=== PATIENT | female | born 1995 | race African-American/Black ===

== ENCOUNTER 2017-12-06 08:39 | Outpatient (CLI) | payer OTHER ==
[2017-12-06] MEDS: LACTATED RINGER'S 1,000 ML IV (09:43)
[2017-12-06 09:58] LABS: ADD MAN DIFF? NO
[2017-12-06 10:06] LABS: WHITE BLOOD COUNT 5.9 10^3/ul (4.8-10.8)
[2017-12-06 10:06] LABS: BASOPHILS % 0.2 % (0.0-2.0); EOSINOPHILS % 0.3 % (0.0-7.0); HEMATOCRIT 27.1 % (37.0-47.0); HEMOGLOBIN 8.6 g/dl (12.0-16.0); LYMPHOCYTES # 1.7 10^3/ul (0.8-2.9); LYMPHOCYTES % 28.8 % (15.0-51.0); MEAN CORPUSCULAR HEMOGLOBIN 26.6 pg (29.0-33.0); MEAN CORPUSCULAR HGB CONC 31.7 g/dl (32.0-37.0); MEAN CORPUSCULAR VOLUME 83.9 fl (82.0-101.0); MEAN PLATELET VOLUME 10.2 fl (7.4-10.4); MONOCYTE # 0.6 10^3/ul (0.3-0.9); MONOCYTES % 10.5 % (0.0-11.0); NEUTROPHIL # 3.5 10^3/ul (1.6-7.5); NEUTROPHILS % 59.7 % (39.0-77.0); PLATELET COUNT 263 10^3/UL (140-415); RED BLOOD COUNT 3.23 10^6/ul (4.20-5.40)
[2017-12-06 10:13] LABS: ADD UMIC NO; UR ASCORBIC ACID NEGATIVE (NEGATIVE); UR BACTERIA FEW /HPF (NONE SEEN); UR BILIRUBIN (Dip) NEGATIVE (NEGATIVE); UR BLOOD (Dip) NEGATIVE (NEGATIVE); UR CLARITY SLIGHTLY CLOUDY (CLEAR); UR COLOR YELLOW (YELLOW); UR GLUCOSE (Dip) NEGATIVE (NEGATIVE); UR KETONES (Dip) NEGATIVE (NEGATIVE); UR LEUKOCYTE ESTERASE (Dip) NEGATIVE Leu/ul (NEGATIVE); UR MUCUS FEW /HPF (NONE SEEN); UR NITRITE (Dip) NEGATIVE (NEGATIVE); UR RBC 1 /HPF (0-5); UR SPECIFIC GRAVITY (Dip) 1.024 (1.003-1.030); UR SQUAMOUS EPITHELIAL CELL MODERATE /HPF (FEW); UR TOTAL PROTEIN (Dip) NEGATIVE (NEGATIVE); UR UROBILINOGEN (Dip) NEGATIVE (NEGATIVE); UR WBC 2 /HPF (0-5)
== END 2017-12-06 11:15 | disposition home or self-care (01) ==
LOC: OBT 08:39 → L-D 08:39 → OBT 11:15
DX: O26.892 Other specified pregnancy related conditions, second trimester (principal); R10.2 Pelvic and perineal pain; Z3A.22 22 weeks gestation of pregnancy
CPT/HCPCS: 76817; 81001; 81003; 85025; 87086; 96366

== ENCOUNTER 2018-01-09 18:20 | Outpatient (CLI) | payer OTHER ==
[2018-01-09 19:53] LABS: ADD UMIC NO; UR ASCORBIC ACID NEGATIVE (NEGATIVE); UR BACTERIA FEW /HPF (NONE SEEN); UR BILIRUBIN (Dip) NEGATIVE (NEGATIVE); UR BLOOD (Dip) NEGATIVE (NEGATIVE); UR CLARITY SLIGHTLY CLOUDY (CLEAR); UR COLOR YELLOW (YELLOW); UR GLUCOSE (Dip) NEGATIVE (NEGATIVE); UR KETONES (Dip) 1+ mg/dL (NEGATIVE); UR LEUKOCYTE ESTERASE (Dip) NEGATIVE Leu/ul (NEGATIVE); UR MUCUS MANY /HPF (NONE SEEN); UR NITRITE (Dip) NEGATIVE (NEGATIVE); UR RBC 1 /HPF (0-5); UR SPECIFIC GRAVITY (Dip) 1.027 (1.003-1.030); UR SQUAMOUS EPITHELIAL CELL MODERATE /HPF (FEW); UR TOTAL PROTEIN (Dip) NEGATIVE (NEGATIVE); UR UROBILINOGEN (Dip) NEGATIVE (NEGATIVE); UR WBC 1 /HPF (0-5)
[2018-01-09 20:33] LABS: ADD MAN DIFF? NO
[2018-01-09 20:42] LABS: BASOPHILS % 0.1 % (0.0-2.0); EOSINOPHILS % 0.1 % (0.0-7.0); HEMATOCRIT 26.7 % (37.0-47.0); HEMOGLOBIN 8.4 g/dl (12.0-16.0); LYMPHOCYTES # 1.5 10^3/ul (0.8-2.9); LYMPHOCYTES % 20.2 % (15.0-51.0); MEAN CORPUSCULAR HEMOGLOBIN 25.9 pg (29.0-33.0); MEAN CORPUSCULAR HGB CONC 31.5 g/dl (32.0-37.0); MEAN CORPUSCULAR VOLUME 82.4 fl (82.0-101.0); MEAN PLATELET VOLUME 10.9 fl (7.4-10.4); MONOCYTE # 0.7 10^3/ul (0.3-0.9); MONOCYTES % 9.1 % (0.0-11.0); NEUTROPHIL # 5.2 10^3/ul (1.6-7.5); NEUTROPHILS % 70.1 % (39.0-77.0); PLATELET COUNT 256 10^3/UL (140-415); RED BLOOD COUNT 3.24 10^6/ul (4.20-5.40); RED CELL DISTRIBUTION WIDTH 15.8 % (11.5-14.5)
[2018-01-09 20:42] LABS: WHITE BLOOD COUNT 7.4 10^3/ul (4.8-10.8)
[2018-01-09 21:04] LABS: ALANINE AMINOTRANSFERASE 17 IU/L (13-69); ALBUMIN 3.3 g/dl (3.3-4.9); ALBUMIN/GLOBULIN RATIO 1.06; ALKALINE PHOSPHATASE 39 IU/L (42-121); ANION GAP 10 (8-16); ASPARTATE AMINO TRANSFERASE 20 IU/L (15-46); BILIRUBIN,INDIRECT 0.2 mg/dl (0-1.1); BILIRUBIN,TOTAL 0.2 mg/dl (0.2-1.3); BLOOD UREA NITROGEN 8 mg/dl (7-20); CALCIUM 8.5 mg/dl (8.4-10.2); CARBON DIOXIDE 22 mmol/L (21-31); CHLORIDE 110 mmol/L (97-110); CREATININE 0.52 mg/dl (0.44-1.00); GLUCOSE 83 mg/dl (70-220); POTASSIUM 3.5 mmol/L (3.5-5.1); SODIUM 138 mmol/L (135-144); TOTAL PROTEIN 6.4 g/dl (6.1-8.1)
[2018-01-09] MEDS ORDERED: SOD CHLORIDE 0.9% 1,000 ML IV (22:00)
[2018-01-09] MEDS: SOD CHLORIDE 0.9% 1,000 ML IV (22:19)
[2018-01-09] MEDS: CEFTRIAXONE 1 GM/50 ML (PMX) 50 ML IVPB (22:45)
== END 2018-01-10 00:33 | disposition home or self-care (01) ==
LOC: OBT 18:20 → L-D 18:21
DX: O26.892 Other specified pregnancy related conditions, second trimester (principal); R10.9 Unspecified abdominal pain; O99.89 Other specified diseases and conditions complicating pregnancy, childbirth and the puerperium; N13.30 Unspecified hydronephrosis; Z3A.27 27 weeks gestation of pregnancy
CPT/HCPCS: 36415; 76775; 76817; 76818; 80053; 81001; 81003; 85025; 87086; 96360; 96361; 96365

== ENCOUNTER 2018-02-19 07:59 | Outpatient (CLI) | payer OTHER ==
[2018-02-19 08:56] LABS: ADD UMIC NO; UR ASCORBIC ACID NEGATIVE (NEGATIVE); UR BILIRUBIN (Dip) NEGATIVE (NEGATIVE); UR BLOOD (Dip) NEGATIVE (NEGATIVE); UR CLARITY CLEAR (CLEAR); UR COLOR YELLOW (YELLOW); UR GLUCOSE (Dip) NEGATIVE (NEGATIVE); UR KETONES (Dip) NEGATIVE (NEGATIVE); UR LEUKOCYTE ESTERASE (Dip) NEGATIVE Leu/ul (NEGATIVE); UR NITRITE (Dip) NEGATIVE (NEGATIVE); UR SPECIFIC GRAVITY (Dip) 1.019 (1.003-1.030); UR TOTAL PROTEIN (Dip) NEGATIVE (NEGATIVE); UR UROBILINOGEN (Dip) NEGATIVE (NEGATIVE)
[2018-02-19 09:51] LABS: RUPTURE FETAL MEMBRANES NEGATIVE (NEGATIVE)
[2018-02-19] MEDS: ACETAMINOPHEN 500 MG TAB PO (10:10)
== END 2018-02-19 10:29 | disposition home or self-care (01) ==
LOC: OBT 07:59 → L-D 07:59 → OBT 10:29
DX: O26.893 Other specified pregnancy related conditions, third trimester (principal); Z3A.32 32 weeks gestation of pregnancy; R10.2 Pelvic and perineal pain
CPT/HCPCS: 76817; 76818; 81003; 82731; 84112

== ENCOUNTER 2018-03-30 12:13 | Inpatient (IN) | payer OTHER ==
[2018-03-30] MEDS: LACTATED RINGER'S 1,000 ML IV ×3 (13:19→20:35)
[2018-03-30] MEDS ORDERED: LACTATED RINGER'S 1,000 ML IV (14:55)
[2018-03-30 16:43] LABS: ADD UMIC NO; UR ASCORBIC ACID NEGATIVE (NEGATIVE); UR BILIRUBIN (Dip) NEGATIVE (NEGATIVE); UR BLOOD (Dip) NEGATIVE (NEGATIVE); UR CLARITY CLEAR (CLEAR); UR COLOR STRAW (YELLOW); UR GLUCOSE (Dip) NEGATIVE (NEGATIVE); UR KETONES (Dip) NEGATIVE (NEGATIVE); UR LEUKOCYTE ESTERASE (Dip) NEGATIVE Leu/ul (NEGATIVE); UR NITRITE (Dip) NEGATIVE (NEGATIVE); UR SPECIFIC GRAVITY (Dip) 1.005 (1.003-1.030); UR TOTAL PROTEIN (Dip) NEGATIVE (NEGATIVE); UR UROBILINOGEN (Dip) NEGATIVE (NEGATIVE)
[2018-03-30 18:53] LABS: ADD MAN DIFF? NO
[2018-03-30 18:57] LABS: HEMATOCRIT 24.5 % (37.0-47.0); HEMOGLOBIN 7.4 g/dl (12.0-16.0); LYMPHOCYTES # 1.9 10^3/ul (0.8-2.9); LYMPHOCYTES % 37.4 % (15.0-51.0); MEAN CORPUSCULAR HEMOGLOBIN 22.4 pg (29.0-33.0); MEAN CORPUSCULAR HGB CONC 30.2 g/dl (32.0-37.0); MEAN CORPUSCULAR VOLUME 74.2 fl (82.0-101.0); MEAN PLATELET VOLUME 11.1 fl (7.4-10.4); MONOCYTE # 0.5 10^3/ul (0.3-0.9); MONOCYTES % 9.1 % (0.0-11.0); NEUTROPHIL # 2.6 10^3/ul (1.6-7.5); NEUTROPHILS % 53.1 % (39.0-77.0); PLATELET COUNT 233 10^3/UL (140-415); RED CELL DISTRIBUTION WIDTH 17.2 % (11.5-14.5)
[2018-03-30 19:17] LABS: INR 0.95; PROTIME 12.8 Sec (11.9-14.9)
[2018-03-30 19:18] LABS: PARTIAL THROMBOPLASTIN TIME 27.7 Sec (23.0-35.0)
[2018-03-31] MEDS: GUAIFENESIN 20 MG/ML 5ML CUP PO ×3 (01:44→14:24)
[2018-03-31] MEDS: ACETAMINOPHEN 325 MG TAB PO ×2 (01:47→10:43)
[2018-03-31] MEDS: LACTATED RINGER'S 1,000 ML IV ×3 (04:58→23:49)
[2018-03-31] MEDS ORDERED: PRENATAL VITAMIN PO (09:00)
[2018-03-31] MEDS: PRENATAL VITAMIN PO (09:16)
[2018-03-31] MEDS: FERROUS SULFATE (EC) 325 MG TAB PO (21:13)
[2018-04-01] MEDS: GUAIFENESIN 20 MG/ML 5ML CUP PO (01:22)
[2018-04-01] MEDS: ACETAMINOPHEN 325 MG TAB PO (01:22)
[2018-04-01] MEDS: PRENATAL VITAMIN PO (09:00)
[2018-04-01] MEDS: FERROUS SULFATE (EC) 325 MG TAB PO (09:00)
== END 2018-04-01 11:26 | disposition home or self-care (01) | DRG 833 ==
LOC: OBT 12:13 → L-D 12:15 → OBT 14:35 → L-D 14:35
DX: O62.9 Abnormality of forces of labor, unspecified (principal); O26.893 Other specified pregnancy related conditions, third trimester; J06.9 Acute upper respiratory infection, unspecified; Z3A.36 36 weeks gestation of pregnancy
CPT/HCPCS: 36415; 76818; 81003; 85025; 85610; 85730; 96360; 96361

== ENCOUNTER 2018-04-14 06:06 | Inpatient (IN) | payer OTHER ==
[2018-04-14 06:51] LABS: ADD MAN DIFF? NO
[2018-04-14] MEDS: LACTATED RINGER'S 1,000 ML IV ×3 (06:59→23:14)
[2018-04-14] MEDS ORDERED: CEFAZOLIN 2 GM/50 ML (PMX) 50 ML IV (07:00)
[2018-04-14] MEDS ORDERED: MISOPROSTOL 200 MCG TAB PR ×2 (07:00→10:30)
[2018-04-14] MEDS ORDERED: CARBOPROST 250 MCG INJ IM ×2 (07:00→10:30)
[2018-04-14] MEDS ORDERED: METHYLERGONOVINE 0.2 MG INJ IM ×2 (07:00→10:30)
[2018-04-14] MEDS ORDERED: OXYTOCIN 30 UNITS/LR 500 ML BAG IV (07:00)
[2018-04-14] MEDS ORDERED: OXYTOCIN 30 UNITS/LR 500 ML IV ×2 (07:00→10:30)
[2018-04-14 07:08] LABS: BASOPHILS % 0.2 % (0.0-2.0); EOSINOPHILS % 0.2 % (0.0-7.0); HEMATOCRIT 27.3 % (37.0-47.0); HEMOGLOBIN 8.2 g/dl (12.0-16.0); LYMPHOCYTES # 2.2 10^3/ul (0.8-2.9); LYMPHOCYTES % 32.8 % (15.0-51.0); MEAN CORPUSCULAR HEMOGLOBIN 22.2 pg (29.0-33.0); MEAN PLATELET VOLUME 11.6 fl (7.4-10.4); MONOCYTE # 0.6 10^3/ul (0.3-0.9); MONOCYTES % 9.5 % (0.0-11.0); NEUTROPHIL # 3.8 10^3/ul (1.6-7.5); PLATELET COUNT 252 10^3/UL (140-415); RED BLOOD COUNT 3.69 10^6/ul (4.20-5.40); RED CELL DISTRIBUTION WIDTH 19.2 % (11.5-14.5)
[2018-04-14 07:08] LABS: WHITE BLOOD COUNT 6.6 10^3/ul (4.8-10.8)
[2018-04-14 07:17] LABS: INR 0.95; PROTIME 12.8 Sec (11.9-14.9)
[2018-04-14] MEDS ORDERED: morphine SULFATE/PF (10 MG/10 ML) INJ (07:46)
[2018-04-14] MEDS ORDERED: ONDANSETRON 4 MG INJ (07:47)
[2018-04-14] MEDS ORDERED: OXYTOCIN 10 UNIT INJ (07:48)
[2018-04-14] MEDS ORDERED: BUPIVACAINE 0.75%/DEXT (SPINAL) 2 ML INJ (07:48)
[2018-04-14 07:55] LABS: HEPATITIS B SURFACE ANTIGEN NEGATIVE (NEGATIVE)
[2018-04-14] MEDS ORDERED: MIDAZOLAM 1 MG/ML 2 ML INJ (08:29)
[2018-04-14] MEDS ORDERED: PHENYLephrine (100 MCG/ML) 5ML SYG (08:30)
[2018-04-14] MEDS ORDERED: FENTAnyl 50 MCG/ML VIAL (08:31)
[2018-04-14] MEDS ORDERED: ONDANSETRON 4 MG INJ IV (09:30)
[2018-04-14] MEDS ORDERED: DIPHENHYDRAMINE 50 MG INJ IV (09:30)
[2018-04-14] MEDS ORDERED: NALOXONE (0.4 MG/ML) INJ IV (09:30)
[2018-04-14] MEDS: OXYTOCIN 30 UNITS/LR 500 ML IV ×2 (09:32→12:52)
[2018-04-14] MEDS: KETOROLAC 30 MG INJ IV (10:42)
[2018-04-14] MEDS: CEFAZOLIN 2 GM/50 ML (PMX) 50 ML IVPB ×2 (15:09→22:54)
[2018-04-14] MEDS: SENNA/DOCUSATE NA (8.6MG/50MG) TAB PO (21:15)
[2018-04-14] MEDS: LANOLIN 7 GM TUBE TOP (21:15)
[2018-04-14 22:50] LABS: RAPID PLASMA REAGIN NONREACTIVE (NR)
[2018-04-15] MEDS: KETOROLAC 30 MG INJ IV (05:22)
[2018-04-15] MEDS: CEFAZOLIN 2 GM/50 ML (PMX) 50 ML IVPB (05:23)
[2018-04-15] MEDS: LACTATED RINGER'S 1,000 ML IV (07:00)
[2018-04-15 07:14] LABS: ADD MAN DIFF? NO
[2018-04-15 07:18] LABS: BASOPHILS % 0.1 % (0.0-2.0); EOSINOPHILS % 0.1 % (0.0-7.0); HEMATOCRIT 24.3 % (37.0-47.0); HEMOGLOBIN 7.3 g/dl (12.0-16.0); LYMPHOCYTES # 1.7 10^3/ul (0.8-2.9); LYMPHOCYTES % 17.8 % (15.0-51.0); MEAN CORPUSCULAR HEMOGLOBIN 21.9 pg (29.0-33.0); MEAN PLATELET VOLUME 11.3 fl (7.4-10.4); MONOCYTE # 0.9 10^3/ul (0.3-0.9); MONOCYTES % 9.5 % (0.0-11.0); NEUTROPHIL # 6.7 10^3/ul (1.6-7.5); NEUTROPHILS % 71.9 % (39.0-77.0); PLATELET COUNT 231 10^3/UL (140-415); RED BLOOD COUNT 3.33 10^6/ul (4.20-5.40); RED CELL DISTRIBUTION WIDTH 19.8 % (11.5-14.5)
[2018-04-15 07:18] LABS: WHITE BLOOD COUNT 9.4 10^3/ul (4.8-10.8)
[2018-04-15] MEDS: morphine 2 MG INJ IV (08:28)
[2018-04-15] MEDS: SENNA/DOCUSATE NA (8.6MG/50MG) TAB PO ×2 (09:08→20:56)
[2018-04-15] MEDS ORDERED: IBUPROFEN 600 MG TAB PO (09:30)
[2018-04-15] MEDS ORDERED: ACETAMINOPHEN 325 MG TAB PO (09:30)
[2018-04-15] MEDS: IBUPROFEN 600 MG TAB PO ×3 (12:08→23:36)
[2018-04-15] MEDS: FERROUS SULFATE (EC) 325 MG TAB PO ×2 (14:23→20:56)
[2018-04-16] MEDS: IBUPROFEN 600 MG TAB PO ×4 (05:34→23:35)
[2018-04-16 08:48] LABS: ADD MAN DIFF? NO
[2018-04-16 08:57] LABS: WHITE BLOOD COUNT 7.3 10^3/ul (4.8-10.8)
[2018-04-16 08:57] LABS: BASOPHILS % 0.1 % (0.0-2.0); EOSINOPHILS % 0.4 % (0.0-7.0); HEMATOCRIT 23.7 % (37.0-47.0); HEMOGLOBIN 7.1 g/dl (12.0-16.0); LYMPHOCYTES # 2.4 10^3/ul (0.8-2.9); LYMPHOCYTES % 32.3 % (15.0-51.0); MEAN CORPUSCULAR HEMOGLOBIN 22.4 pg (29.0-33.0); MEAN CORPUSCULAR VOLUME 74.8 fl (82.0-101.0); MEAN PLATELET VOLUME 11.6 fl (7.4-10.4); MONOCYTE # 0.8 10^3/ul (0.3-0.9); MONOCYTES % 10.5 % (0.0-11.0); NEUTROPHIL # 4.1 10^3/ul (1.6-7.5); NEUTROPHILS % 56.3 % (39.0-77.0); PLATELET COUNT 246 10^3/UL (140-415); RED BLOOD COUNT 3.17 10^6/ul (4.20-5.40); RED CELL DISTRIBUTION WIDTH 19.9 % (11.5-14.5)
[2018-04-16] MEDS: FERROUS SULFATE (EC) 325 MG TAB PO ×3 (12:18→21:13)
[2018-04-16] MEDS: SENNA/DOCUSATE NA (8.6MG/50MG) TAB PO ×2 (12:18→21:13)
[2018-04-16] MEDS: OXYCODONE/ACETAMINOPHEN (5/325) TAB PO (14:51)
[2018-04-17] MEDS: OXYCODONE/ACETAMINOPHEN (5/325) TAB PO ×3 (00:06→15:04)
[2018-04-17] MEDS: IBUPROFEN 600 MG TAB PO ×2 (05:45→11:37)
[2018-04-17] MEDS: SENNA/DOCUSATE NA (8.6MG/50MG) TAB PO (08:23)
[2018-04-17] MEDS: FERROUS SULFATE (EC) 325 MG TAB PO ×2 (08:23→13:00)
[2018-04-17] MEDS: DIPHTH/TET/ACEL PERTUSS (ADULT) 0.5 ML VIAL IM* (11:40)
== END 2018-04-17 16:50 | disposition home or self-care (01) | DRG 788 ==
LOC: OBT 06:06 → L-D 06:06 → OBT 06:07 → L-D 06:07 → PP1 11:35
PROVIDERS: Obstetrics & Gynecology
PROC: 10D00Z1 Extraction of Products of Conception, Low, Open Approach (ICD-10-PCS; principal; 2018-04-14 07:30)
DX: O34.211 Maternal care for low transverse scar from previous cesarean delivery (principal); O90.81 Anemia of the puerperium; D64.9 Anemia, unspecified; Z3A.38 38 weeks gestation of pregnancy; Z37.0 Single live birth
CPT/HCPCS: 85025; 85610; 85730; 86592; 86850; 86900; 86901; 86920; 87340; 90715; 99464